=== PATIENT | male | born 1975 | race African-American/Black ===

== ENCOUNTER 2016-12-19 16:27 | Emergency (ER) | payer OTHER ==
[2016-12-19 16:32] VITALS: TEMP 97.8; BMI 49.3
--- NOTE | 2016-12-19 17:17 | PDOC ---
[id number] 98 12/19/16 16:29 12/19/16 16:29 12/19/16 16:29 12/19/16 16:29 12/19/16 16:29 Medical Decision Making - Medical Decision Making 12/19/16 17:16 Case reviewed with CARAMEL CANDY MAKER HELPER. Plan as per CARAMEL CANDY MAKER HELPER *DC/Admit/Observation/Transfer Diagnosis at time of Disposition: Asymptomatic hypertension - Discharge Dispostion Disposition: HOME - Referrals Referrals: Dariel Breen MD [Primary Care Provider] - - Patient Instructions Printed Discharge Instructions: DI for High Blood Pressure Additional Instructions: Continue your medication and be reevaluated with your doctor on Thursday as scheduled Be reevaluated over the weekend if not feeling right
[2016-12-19] MEDS ORDERED: amLODIPine BESYLATE 10 MG TABLET (FP) PO ONE (17:19)
[2016-12-19] MEDS ORDERED: LOSARTAN POTASSIUM 50 MG TABLET (FP) PO ONE (17:19)
--- NOTE | 2016-12-19 17:19 | PDOC ---
History of Present Illness - General Chief Complaint: Blood Pressure Problem Stated Complaint: BP PROBLEM Time Seen by Provider: 12/19/16 17:10 History Source: Patient Exam Limitations: No Limitations - History of Present Illness Initial Comments: 12/19/16 17:50 Chief complaint: Blood pressure check Shouldn't is 41-year-old obese male who had sleeve surgery on 12/05. Patient states he saw his doctor last week and his blood pressure was good so his doctor took him off of his blood pressure medicine. Patient feels fine, but is here with his and wanted to get his blood pressure checked and it was found to be elevated. Patient has no complaints bp 148/106 GENERAL/CONSTITUTIONAL: No fever, weakness. dizziness HEAD, EYES, EARS, NOSE AND THROAT: No change in vision. No ear pain or discharge. No sore throat. CARDIOVASCULAR: No chest pain RESPIRATORY: No shortness of breath or cough GASTROINTESTINAL: No pain, nausea, vomiting, diarrhea or constipation GENITOURINARY: No dysuria MUSCULOSKELETAL: No neck or back pain SKIN: No rash NEUROLOGIC: No headache, vertigo, loss of consciousness, or loss of sensation. GENERAL: The patient is awake, alert, and fully oriented, in no acute distress. HEAD: Normal with no signs of trauma. EYES: Pupils equal, round and reactive to light, sclera anicteric, conjunctiva clear. ENT: pharynx: no erythema, no exudate, uvula midline NECK: supple CHEST: clear, nontender, rr ABD: soft, nontender EXTREMITIES: Normal range of motion, no edema. NEUROLOGICAL: Normal speech, normal gait. SKIN: Warm, Dry 12/19/16 17:53 Past History - Past Medical History Allergies/Adverse Reactions: Allergies Allergy/AdvReac Type Severity Reaction Status Date / Time Penicillins Allergy Intermediate Swelling Verified 12/19/16 17:22 Home Medications: Ambulatory Orders Amlodipine Besylate [Norvasc -] 10 mg PO HS 08/31/14 Losartan Potassium 50 mg PO HS 08/31/14 Anemia: No Asthma: No Cancer: No Cardiac Disorders: No CVA: No COPD: No CHF: No Dementia: No Diabetes: No GI Disorders: Yes (diverticulitis/diverticulosis) Disorders: No HTN: Yes Hypercholesterolemia: Yes Liver Disease: No Seizures: No Thyroid Disease: No - Surgical History Abdominal Surgery: No Appendectomy: No Cardiac Surgery: No Cholecystectomy: No GI Surgery: Yes (sleeve 12/2016) Lung Surgery: No Neurologic Surgery: No Orthopedic Surgery: No - Immunization History Immunization Up to Date: Yes - Psycho/Social/Smoking Cessation Hx Anxiety: No Suicidal Ideation: No Smoking Status: No Smoking History: Never smoked Have you smoked in the past 12 months: No Number of Cigarettes Smoked Daily: 0 Information on smoking cessation initiated: No Hx Alcohol Use: No Drug/Substance Use Hx: No Substance Use Type: None *Physical Exam - Vital Signs Last Vital Signs Temp Pulse Resp BP Pulse Ox 97.8 F 77 20 148/106 98 12/19/16 16:29 12/19/16 16:29 12/19/16 16:29 12/19/16 16:29 12/19/16 16:29 Medical Decision Making - Medical Decision Making 12/19/16 17:54 Patient with asymptomatic hypertension, patient takes Norvasc 10 ML losartan 50 mg has not taken since Thursday. Patient will be given a dose of both, he has an appointment with his regular doctor on Thursday and he will continue to take his medication every day and be reevaluated by his doctor on Thursday *DC/Admit/Observation/Transfer Diagnosis at time of Disposition: Asymptomatic hypertension - Discharge Dispostion Disposition: HOME Admit: No - Referrals Referrals: Dariel Breen MD [Primary Care Provider] - - Patient Instructions Printed Discharge Instructions: DI for High Blood Pressure Additional Instructions: Continue your medication and be reevaluated with your doctor on Thursday as scheduled Be reevaluated over the weekend if not feeling right
[2016-12-19] MEDS ORDERED: LOSARTAN POTASSIUM 25 MG TABLET ONE (17:34)
[2016-12-19] MEDS ORDERED: amLODIPine BESYLATE 5 MG TABLET (FP) ONE (17:34)
[2016-12-19 17:46] VITALS: BP 148/99; PULSE 80
== END 2016-12-19 17:44 | disposition home or self-care (01) ==
LOC: JER 16:27
DX: Z01.31 Encounter for examination of blood pressure with abnormal findings (principal); Z98.84 Bariatric surgery status; I10 Essential (primary) hypertension; E78.00 Pure hypercholesterolemia, unspecified
CPT/HCPCS: 99282-25

== ENCOUNTER 2018-04-02 16:51 | Emergency (ER) | payer SELFPAY ==
--- NOTE | 2018-04-02 17:01 | PDOC ---
Rapid Medical Evaluation Time Seen by Provider: 04/02/18 17:00 Medical Evaluation: Allergies Allergy/AdvReac Type Severity Reaction Status Date / Time Penicillins Allergy Intermediate Swelling Verified 12/19/16 17:22 I have performed a brief in-person evaluation of this patient. The patient presents with a chief complaint of: right low back pain x 2 days. No radiation of pain. worse with movement Pertinent physical exam findings: No TTP of right lower lumbar region. No midline lumbar spine TTP. No CVA TTP b/l. Full ROM of lumbar spine without pain I have ordered the following: nothing The patient will proceed to the ED for further evaluation. Discharge Disposition - Diagnosis Low back pain - Referrals - Patient Instructions - Post Discharge Activity
[2018-04-02 17:04] VITALS: BP 147/78; PULSE 80; TEMP 98.4; BMI 32.8
[2018-04-02] MEDS ORDERED: IBUPROFEN 400 MG TABLET (FP) PO ONE ×2 (17:44→17:48)
--- NOTE | 2018-04-02 17:59 | PDOC ---
History of Present Illness - General Chief Complaint: Back Pain Stated Complaint: PAIN Time Seen by Provider: 04/02/18 17:00 History Source: Patient - History of Present Illness Occurred: reports: other Pain Location: reports: back Past History - Past Medical History Allergies/Adverse Reactions: Allergies Allergy/AdvReac Type Severity Reaction Status Date / Time Penicillins Allergy Intermediate Swelling Verified 04/02/18 17:00 Home Medications: Ambulatory Orders Amlodipine Besylate [Norvasc -] 10 mg PO HS 08/31/14 Anemia: No Asthma: No Cancer: No Cardiac Disorders: No CVA: No COPD: No CHF: No DVT: No Dementia: No Diabetes: No GI Disorders: Yes (diverticulitis/diverticulosis) Disorders: No HTN: Yes Hypercholesterolemia: Yes Liver Disease: No Seizures: No Thyroid Disease: No - Surgical History Abdominal Surgery: No Appendectomy: No Cardiac Surgery: No Cholecystectomy: No GI Surgery: Yes (sleeve 12/2016) Lung Surgery: No Neurologic Surgery: No Orthopedic Surgery: No - Immunization History Immunization Up to Date: Yes - Suicide/Smoking/Psychosocial Hx Smoking Status: No Smoking History: Never smoked Have you smoked in the past 12 months: No Number of Cigarettes Smoked Daily: 0 Information on smoking cessation initiated: No Hx Alcohol Use: No Drug/Substance Use Hx: No Substance Use Type: None Review of Systems - Review of Systems Constitutional: No: Chills, Fever ABD/GI: No: Nausea, Vomiting, Abdominal cramping : No: Burning, Dysuria, Discharge, Hematuria *Physical Exam - Vital Signs Last Vital Signs Temp Pulse Resp BP Pulse Ox 98.4 F 80 18 147/78 100 04/02/18 17:01 04/02/18 17:01 04/02/18 17:01 04/02/18 17:01 04/02/18 17:01 - Physical Exam General Appearance: Yes: Appropriately Dressed. No: Apparent Distress HEENT: positive: Normal Voice Neck: positive: Supple Respiratory/Chest: positive: Lungs Clear, Normal Breath Sounds. negative: Respiratory Distress Cardiovascular: positive: Regular Rate, S1, S2 Gastrointestinal/Abdominal: positive: Soft. negative: Tender Musculoskeletal: negative: CVA Tenderness Extremity: positive: Normal Inspection Integumentary: positive: Dry, Warm Neurologic: positive: Fully Oriented, Alert, Normal Mood/Affect ED Treatment Course - Medications Given in the ED: ED Medications Discontinued Medications Generic Name Dose Route Start Last Admin Trade Name Giuliano PRN Reason Stop Dose Admin Ibuprofen 800 mg 04/02/18 17:44 04/02/18 17:52 Motrin - PO 04/02/18 17:45 800 mg ONCE ONE Administration Medical Decision Making - Medical Decision Making 04/02/18 17:56 42-year-old male status post gastric sleeve 12/19, HTN, ?borderline DM, possible diverticulitis, here with gradual onset right mid back pain 2 days. Described pain as achy with intensity of 6 out of 10 with no exacerbating or alleviating factors. Has not taken anything for pain. Denies any trauma, but states he did lift some heavy boxes at some point prior to onset of pain. Patient denies any nausea, vomiting, dysuria, hematuria, abdominal pain or changes in bowel movements. No sob or CP. See exam R mid back pain Possibly MSK given heavy lifting per hx No sxs or n/v to suspect uti or renal colic at this time No suspicion for aortic pathology Exam unremarkable -UA -pain control 04/02/18 18:23 Ua neg for bld or infxn. Pt improved w/ meds. Will dc w/ PMD f/u as needed 04/02/18 18:25 *DC/Admit/Observation/Transfer Diagnosis at time of Disposition: Low back pain Qualifiers: Chronicity: acute Back pain laterality: right Sciatica presence: without sciatica Qualified Code(s): M54.5 - Low back pain - Discharge Dispostion Disposition: HOME Condition at time of disposition: Improved - Referrals Referrals: Dariel Breen MD [Primary Care Provider] - - Patient Instructions Printed Discharge Instructions: DI for Thoracic Back Pain Additional Instructions: Your back pain is possibly muscular. Muscular back pain can take several days to a week or so to improve. Take Motrin or Tylenol as needed for pain and follow-up with your PMD for further evaluation if pain persists - Post Discharge Activity
[2018-04-02 18:14] LABS: URINE APPEARANCE CLEAR; URINE BILIRUBIN NEGATIVE (<2.0 mg/dL); URINE COLOR YELLOW; URINE GLUCOSE (UA) NEGATIVE (NEGATIVE); URINE KETONE NEGATIVE (NEGATIVE); URINE LEUK ESTERASE NEGATIVE (NEGATIVE); URINE NITRITE NEGATIVE (NEGATIVE); URINE PROTEIN NEGATIVE (NEGATIVE); URINE UROBILINOGEN 4.0 E.U/dl mg/dL (0.2-1.0)
== END 2018-04-02 18:30 | disposition home or self-care (01) ==
LOC: JERFT 16:51
DX: M54.5 Low back pain (principal); I10 Essential (primary) hypertension; E78.00 Pure hypercholesterolemia, unspecified; Z87.19 Personal history of other diseases of the digestive system
CPT/HCPCS: 81003; 99281-25

== ENCOUNTER 2018-09-27 11:04 | Inpatient (IN) | payer OTHER ==
[2018-09-27 11:27] VITALS: BMI 33.6
--- NOTE | 2018-09-27 12:09 | PDOC ---
Attending Attestation - HPI HPI: 09/27/18 13:01 The patient is a 43 year old male, with a significant past medical history of hypertension and gastric bypass, who presents to the emergency department with diffuse, vague abdominal pain since last night. The patient denies chest pain, shortness of breath, headache and dizziness. The patient denies fever, chills, nausea, vomit, diarrhea and constipation. The patient denies dysuria, frequency, urgency and hematuria. Allergies: Penicillins PCP - Dr. Dariel Breen - Physicial Exam PE: 09/27/18 13:01 Vitals: Triage vital signs reviewed General Appearance: No acute distress, well nourished, well developed Head: Atraumatic Eyes: Pupils equal reactive round, extraocular movement intact Neck: Supple; No nuchal rigidity Chest Wall: Nontender Cardiac: Regular rate and rhythm, no murmurs, no rubs, no gallops Lungs: Clear to auscultation bilateral, good air movement bilaterally Abdomen: Soft, nondistended, normal bowel sounds, nontender to palpation Extremities: Full range of motion to all extremities, no cyanosis, clubbing, or edema Skin: Warm and dry, no rashes or lesions, no rash, no petechiae Neuro: AOX3; Cranial Nerves 2-12 grossly intact, Strength intact to all extremities, Sensation intact to all extremities, gait normal Psych: Normal mood, normal affect - Medical Decision Making 09/27/18 13:01 Documentation prepared by Soledad Arora, acting as director of medical education for Jessee Swift MD <Soledad Arora - Last Filed: 09/27/18 13:01> - Resident Resident Name: Vee Espino - ED Attending Attestation I have performed the following: I have examined & evaluated the patient, The case was reviewed & discussed with the resident, I agree w/resident's findings & plan, Exceptions are as noted - Medical Decision Making 43 years old history of gastric bypass presents with sudden severe onset abdominal discomfort differential diagnosis includes obstruction gallstones viral illness Pain medication ordered patient ordered for abdominal ultrasound as well as CT abdomen pelvis with by mouth and IV contrast given previous abdominal surgical history Dr. Blackwell to follow up results and reassess. <Jessee Swift - Last Filed: 09/27/18 16:27>
[2018-09-27] MEDS ORDERED: SODIUM CHLORIDE 0.9% 1000 ML INFUS.BAG IV ONE (12:42)
[2018-09-27] MEDS ORDERED: ACETAMINOPHEN 1000 MG/100 ML VIAL (NON FORMULARY) IVPB ONE (12:42)
--- NOTE | 2018-09-27 12:44 | PDOC ---
History of Present Illness - General Chief Complaint: Nausea/Vomiting Stated Complaint: Pain, Acute Time Seen by Provider: 09/27/18 12:07 - History of Present Illness Initial Comments: 09/27/18 12:59 Patient is a 43 year old male with PMHx of HTN and gastric sleeve surgery (2015) , presented with sudden onset, severe, 10/10, diffuse, nonradiating, vague abdominal pain that started yesterday. Patient reported eating dinner, and a few hours after experienced the abdominal pain. He had one episode of NBNB vomiting. Denies headache, dizziness, fevers, chills, chest pain, SOB, palpitations, diarrhea, constipation, urinary symptoms. Past History - Past Medical History Allergies/Adverse Reactions: Allergies Allergy/AdvReac Type Severity Reaction Status Date / Time Penicillins Allergy Intermediate Swelling Verified 09/27/18 11:20 Home Medications: Ambulatory Orders Amlodipine Besylate [Norvasc -] 10 mg PO HS 08/31/14 Anemia: No Asthma: No Cancer: No Cardiac Disorders: No CVA: No COPD: No CHF: No DVT: No Dementia: No Diabetes: No GI Disorders: Yes (diverticulitis/diverticulosis) Disorders: No HTN: Yes Hypercholesterolemia: Yes Liver Disease: No Seizures: No Thyroid Disease: No - Surgical History Abdominal Surgery: No Appendectomy: No Cardiac Surgery: No Cholecystectomy: No GI Surgery: Yes (sleeve 12/2016) Lung Surgery: No Neurologic Surgery: No Orthopedic Surgery: No - Immunization History Immunization Up to Date: Yes - Suicide/Smoking/Psychosocial Hx Smoking Status: No Smoking History: Never smoked Have you smoked in the past 12 months: No Number of Cigarettes Smoked Daily: 0 Information on smoking cessation initiated: No Hx Alcohol Use: No Drug/Substance Use Hx: No Substance Use Type: None *Physical Exam - Vital Signs Last Vital Signs Temp Pulse Resp BP Pulse Ox 98.5 F 86 16 170/105 H 99 09/27/18 11:21 09/27/18 11:21 09/27/18 11:21 09/27/18 11:21 09/27/18 11:21 ED Treatment Course - LABORATORY CBC & Chemistry Diagram: 09/27/18 12:47 09/27/18 12:47 Medical Decision Making - Medical Decision Making 09/27/18 12:40 Patient is a 43 year old male with PMHx of HTN and gastric sleeve surgery (2016) , presented with sudden onset, severe, 08/11, diffuse, nonradiating, vague abdominal pain that started yesterday. General: awake, alert, oriented, not in acute distress Head: no signs of head trauma HEENT: PERRLA, EOMI, sclerae anicteric, no nasal discharge, dry mucous membranes Neck: supple, trachea midline, without LAD Lungs: clear to auscultation bilaterally Heart: regular rate and rhythm, normal S1/S2, no m,r,g Abdomen: soft, mild tenderness on all quadrants, nondistended, +BS, no guarding , no masses Ext: +2 pulses, no cyanosis, clubbing, edema DDx includes but not limited to: bowel obstruction, cholelithiasis, choledocholithiasis, pancreatitis, ACS, CBC, CMP Trop, Lipase EKG Abdominal CT with contrast IV tylenol 1000mg IV NS 09/27/18 14:25 AST/ALT - 245/295 Lipase - 35591 T bili - 4.3 abdominal US ordered 09/27/18 18:36 Abdominal ultrasound - gallstone pancreatitis Abdominal CT- gallstone pancreatitis Spoke with Dr. Mccall, accepted patient for admission Surgery (Dr. Matthews) consulted. GI (Dr. Hickman) consulted. ERCP not available at this time. 09/27/18 19:[address] Howie Reno from [facility], who did patient's gastric surgery. To transfer patient as he may need ERCP. 09/27/18 20:[address] Howie Reno, who will be accepting patient for transfer to [facility] Main Patient for transfer. 09/27/18 21:32 Nurse report done by ALETHEA Guo. Patient will be in bed number 8E/8B, under Dr. Howie Reno's service. [facility] called for transport to [facility] *DC/Admit/Observation/Transfer Diagnosis at time of Disposition: Gallstone pancreatitis - Discharge Dispostion Condition at time of disposition: Stable Decision to Admit order: Yes - Referrals - Patient Instructions - Post Discharge Activity
[2018-09-27] MEDS ORDERED: ACETAMINOPHEN INJECTION 100 ML IVPB ONE (12:50)
[2018-09-27 12:58] LABS: BASO % 0.1 % (0-2.0); EOS % 0.5 % (0-4.5); HEMATOCRIT 45.4 % (35.4-49); HEMOGLOBIN 15.9 GM/dL (11.7-16.9); LYMPH % 8.1 % (8-40); MCH 30.7 pg (25.7-33.7); MCHC 35.1 g/dl (32.0-35.9); MEAN CELL VOLUME 87.7 fl (80-96); MEAN PLT VOLUME 10.5 fl (7.5-11.1); MONO % 6.2 % (3.8-10.2); NEUT % 85.1 % (42.8-82.8); PLATELET COUNT 168 K/MM3 (134-434); RBC 5.18 M/mm3 (4.00-5.60); RDW 14.3 % (11.9-15.9); WHITE BLOOD COUNT 7.1 K/mm3 (4.0-10.0)
--- NOTE | 2018-09-27 13:30 | EKG ---
Test Reason : Blood Pressure : / mmHG Vent. Rate : 083 BPM Atrial Rate : 085 BPM P-R Int : 156 ms QRS Dur : 092 ms QT Int : 380 ms P-R-T Axes : 058 -01 039 degrees QTc Int : 446 ms NORMAL SINUS RHYTHM WITH SINUS ARRHYTHMIA NO PREVIOUS ECGS AVAILABLE Confirmed by FEDERICO BUTT MD ([id number]) on 09/27/2018 1:29:46 PM Referred By: Confirmed By:FEDERICO BUTT MD
[2018-09-27 14:01] LABS: ALBUMIN 3.8 g/dl (3.4-5.0); ALK PHOS 74 U/L (45-117); ANION GAP 12 MMOL/L (8-16); BILIRUBIN,TOTAL 4.3 mg/dL (0.2-1); BLOOD UREA NITROGEN 15 mg/dL (7-18); CHLORIDE 105 mmol/L (98-107); CO2 25 mmol/L (21-32); CREATININE 0.9 mg/dL (0.55-1.3); GLUCOSE,RANDOM 138 mg/dL (74-106); POTASSIUM 3.9 mmol/L (3.5-5.1); SGOT/AST 245 U/L (15-37); SGPT/ALT 295 U/L (13-61); SODIUM 142 mmol/L (136-145)
[2018-09-27 14:15] LABS: LIPASE 18917 U/L (73-393); MAGNESIUM 1.9 mg/dL (1.8-2.4)
[2018-09-27] MEDS ORDERED: morphine SULFATE 4 MG/ML VIAL IVPUSH ONE (17:04)
[2018-09-27 17:10] LABS: URINE APPEARANCE CLEAR; URINE COLOR AMBER; URINE GLUCOSE (UA) NEGATIVE (NEGATIVE); URINE KETONE 1+ (NEGATIVE); URINE LEUK ESTERASE NEGATIVE (NEGATIVE); URINE NITRITE NEGATIVE (NEGATIVE); URINE PROTEIN NEGATIVE (NEGATIVE); URINE UROBILINOGEN 4.0 E.U/dl mg/dL (0.2-1.0)
[2018-09-27] MEDS ORDERED: SODIUM CHLORIDE 1,000 ML IV SCH ×2 (17:30→17:34)
[2018-09-27] MEDS ORDERED: D5-1/2NS+10 MEQ KCL - 10 MEQ/1,000 ML INFUS.BAG IV SCH (17:30)
[2018-09-27] MEDS ORDERED: PANTOPRAZOLE SODIUM 40 MG VIAL IVPUSH SCH (17:30)
[2018-09-27] MEDS ORDERED: ONDANSETRON 4 MG/2 ML VIAL IVPUSH PRN (17:30)
[2018-09-27] MEDS ORDERED: morphine SULFATE 4 MG/ML VIAL ONE (17:43)
--- NOTE | 2018-09-27 17:44 | HP ---
Admitting History and Physical - Primary Care Physician PCP: Dariel Breen - Admission Chief Complaint: Abd Pain with nausea and vomiting History of Present Illness: 43 yrs old man with H/O HTN, morbid obesity s/p Gsatric sleeve surgery at [place] 2 yrs ago present with sever epigastric pain since last night 8, with nausea, feels my abdomen is distended also an episode of vomiting no hemetmesis or melena last BM was yesterday not passing flatus since last night, no c/o fever, chills, dysuria, in the ED present with high BP lab shows deranged Lfts and Lipase CT abd and ultrasound performed that shows acute pancreatitis with peripancraetic fluid, cholelthiasis with swollen gall bladder surgery and GI consulted. Patient has good ET denies any orthopnea or PND, History Source: Patient - Past Medical History Cardiovascular: Yes: HTN - Smoking History Smoking history: Never smoked Have you smoked in the past 12 months: No Aproximately how many cigarettes per day: 0 - Alcohol/Substance Use Hx Alcohol Use: No Home Medications - Allergies Allergies/Adverse Reactions: Allergies Allergy/AdvReac Type Severity Reaction Status Date / Time Penicillins Allergy Intermediate Swelling Verified 09/27/18 11:20 - Home Medications Home Medications: Ambulatory Orders Amlodipine Besylate [Norvasc -] 10 mg PO HS 08/31/14 Family Disease History - Family Disease History Family History: Unremarkable Family Disease History: Heart Disease: Father (HTN), Mother (HTN) Review of Systems - Review of Systems Constitutional: denies: Chills, Diaphoresis, Fever, Lethargy Eyes: denies: Blind Spots, Blurred Vision HENT: denies: Difficult Swallowing, Ear Discharge, Ear Pain, Epistaxis Neck: denies: Decreased ROM, Lumps, Pain on Movement Cardiovascular: denies: Chest Pain, Edema, Palpitations, Shortness of Breath Respiratory: denies: Cough, Exercise Intolerance, Hemoptysis Gastrointestinal: reports: Abdominal Pain, Nausea, Vomiting Genitourinary: denies: Burning, Discharge Musculoskeletal: denies: Back Pain Neurological: denies: Change in LOC, Change in Speech, Confusion Endocrine: denies: Excessive Sweating, Flushing Hematology/Lymphatic: denies: Easily Bruised, Excessive Bleeding Physical Examination Vital Signs: Vital Signs Temperature 98.5 F 09/27/18 11:21 Pulse Rate 86 09/27/18 11:21 Respiratory Rate 16 09/27/18 11:21 Blood Pressure 170/105 H 09/27/18 11:21 O2 Sat by Pulse Oximetry (%) 99 09/27/18 11:21 Constitutional: Yes: Well Nourished, Moderate Distress Neck: Yes: Supple, Trachea Midline. No: Decreased ROM, Lymphadenopathy Cardiovascular: Yes: Regular Rate and Rhythm, S1. No: JVD, Gallop, Murmur Respiratory: Yes: CTA Bilaterally Gastrointestinal: Yes: Normal Bowel Sounds, Tenderness, Epigastrium Extremities: No: Calf Tenderness Edema: No Peripheral Pulses: Left Doralis Pedis: 1+, Right Dorsalis Pedis: 1+ Neurological: Yes: Alert, Oriented ...Motor Strength: WNL, LUE, LLE, RUE, RLE Labs: CBC,CMP WBC 7.1 K/mm3 (4.0-10.0) 09/27/18 12:47 RBC 5.18 M/mm3 (4.00-5.60) 09/27/18 12:47 Hgb 15.9 GM/dL (11.7-16.9) 09/27/18 12:47 Hct 45.4 % (35.4-49) 09/27/18 12:47 MCV 87.7 fl (80-96) 09/27/18 12:47 MCH 30.7 pg (25.7-33.7) 09/27/18 12:47 MCHC 35.1 g/dl (32.0-35.9) 09/27/18 12:47 RDW 14.3 % (11.9-15.9) 09/27/18 12:47 Plt Count 168 K/MM3 (134-434) 09/27/18 12:47 MPV 10.5 fl (7.5-11.1) 09/27/18 12:47 Absolute Neuts (auto) 6.0 K/mm3 (1.5-8.0) 09/27/18 12:47 Neutrophils % 85.1 % (42.8-82.8) H D 09/27/18 12:47 Lymphocytes % 8.1 % (8-40) D 09/27/18 12:47 Monocytes % 6.2 % (3.8-10.2) 09/27/18 12:47 Eosinophils % 0.5 % (0-4.5) 09/27/18 12:47 Basophils % 0.1 % (0-2.0) 09/27/18 12:47 Nucleated RBC % 0 % (0-0) 09/27/18 12:47 Sodium 142 mmol/L (136-145) 09/27/18 12:47 Potassium 3.9 mmol/L (3.5-5.1) 09/27/18 12:47 Chloride 105 mmol/L (98-107) 09/27/18 12:47 Carbon Dioxide 25 mmol/L (21-32) 09/27/18 12:47 Anion Gap 12 MMOL/L (8-16) 09/27/18 12:47 BUN 15 mg/dL (7-18) 09/27/18 12:47 Creatinine 0.9 mg/dL (0.55-1.3) 09/27/18 12:47 Creat Clearance w eGFR > 60 (>60) 09/27/18 12:47 Random Glucose 138 mg/dL (74-106) H 09/27/18 12:47 Calcium 9.0 mg/dL (8.5-10.1) 09/27/18 12:47 Magnesium 1.9 mg/dL (1.8-2.4) 09/27/18 12:47 Total Bilirubin 4.3 mg/dL (0.2-1) H 09/27/18 12:47 AST 245 U/L (15-37) H 09/27/18 12:47 ALT 295 U/L (13-61) H 09/27/18 12:47 Alkaline Phosphatase 74 U/L (45-117) 09/27/18 12:47 Creatine Kinase 143 IU/L (26-308) 09/27/18 12:47 Troponin I < 0.02 ng/ml (0.00-0.05) 09/27/18 12:47 Total Protein 7.0 g/dl (6.4-8.2) 09/27/18 12:47 Albumin 3.8 g/dl (3.4-5.0) 09/27/18 12:47 Lipase 15933 U/L (73-393) H 09/27/18 12:47 Imaging - Results Cat Scan: Report Reviewed (Abdomen and Pelvis: Acute pancretatitsi with peripancreatic Fluid) Ultrasound: Report Reviewed (Distended Gall bladder with stones) EKG: Report Reviewed (nsr no acute ST t changes) Problem List - Problems (1) Gallstone pancreatitis Assessment/Plan: Typical presentation, with elevated TB , Alk Phosphate and SGOT/SGPT, Lipase > 18 K with moderte amount of horacio-pancreatic fluid, Gall bladder distention with multiple Gall stones CBD 0.5 cm, no CT evidence of pancreatic necrosis, IV Hydration Normal saline 150 cc/HR, NPO, Pain control, IV PPI, MRCP< surgery consult, serial labs and Lapse will F/U CRP level, rest management as per surgery recommendation.Gi and surgery input appreciated considering elevated TB possibality of obstructed stone at present ERCP is not available , GI recomonded transfer to a Ctr with ERCP facility, so discussed with surgery consult and ED attending, as patient previously oprated at [facility] is contactcting [place] to transfer the patient. Code(s): K85.10 - BILIARY ACUTE PANCREATITIS WITHOUT NECROSIS OR INFECTION (2) Abdominal pain Assessment/Plan: Due to acute pancreatitis Code(s): R10.9 - UNSPECIFIED ABDOMINAL PAIN (3) Nausea & vomiting Assessment/Plan: dUe to acute pancreatitis NPO IV PPI Zofran and Code(s): R11.2 - NAUSEA WITH VOMITING, UNSPECIFIED Qualifiers: Vomiting type: unspecified Vomiting Intractability: non-intractable Qualified Code(s): R11.2 - Nausea with vomiting, unspecified (4) Asymptomatic hypertension Assessment/Plan: Took am meds BP is well controlled after Pain medications Code(s): I10 - ESSENTIAL (PRIMARY) HYPERTENSION (5) Morbid obesity Assessment/Plan: S/P Gastric sleeve surgery Code(s): E66.01 - MORBID (SEVERE) OBESITY DUE TO EXCESS CALORIES
[2018-09-27] MEDS ORDERED: PANTOPRAZOLE SODIUM 40 MG VIAL ONE (17:45)
[2018-09-27] MEDS: SODIUM CHLORIDE 1,000 ML IV SCH ×2 (18:06→18:31)
--- NOTE | 2018-09-27 18:24 | CONSULT ---
Consult Consult Specialty:: General Surgery Referred by:: Clark Mccall Reason for Consultation:: gallstone pancreatitis - History of Present Illness Chief Complaint: abdominal pain History of Present Illness: 43yo obese M with HTN, diverticulitis x 2 episodes prior to bariatric surgery, s /p EGD/colonoscopy, h/o morbid obesity s/p lap gastric sleeve 12/19 with 100# weight loss, has not seen his bariatric surgeon recently, had Thanksgiving leftovers yesterday and started having abdominal pain, which did not respond to motrin. He describes pain "everywhere," and has had pain with breathing because of it. He had an episode of vomiting (food) and diarrhea yesterday as well. This morning, he had coffee with equal and half&half, and the pain got even worse, prompting him to come to hospital. He denies fever or chills. In ER, he has normal wbc, is dehydrated by labs, has elevated AST/ALT and bili 4.6, with lipase 18K, normal alk phos. Urine with ketones and high specific gravity 1.055; he describes it as very dark. US showed gallstones with somewhat distended galllbladder, possibly mild wall thickening, cbd 5mm, possibly enlarged pancreas. CT showed pancreatitis without revealing the gallstones clearly, with peripancreatic fluid into lesser sac, pararenal spaces, lateral to liver, and also in pelvis, as well as a small duodenal diverticulum. His pain is a bit better after morphine, and he has been started on fluids and Levofloxacin/Flagyl. Plan is to admit to medicine; GI and surgery are asked to assess. - History Source History Provided By: Patient Limitations to Obtaining History: No Limitations - Past Medical History Cardio/Vascular: Yes: HTN Gastrointestinal: Yes: Diverticulitis, Diverticulosis, Other (morbid obesity) - Past Surgical History Past Surgical History: Yes: Bariatric Surgery (laparoscopic gastric sleeve 12/19 Dr. Richter, [facility]), Colonoscopy, Upper Endoscopy - Alcohol/Substance Use Hx Alcohol Use: No History of Substance Use: reports: None - Smoking History Smoking history: Never smoked Have you smoked in the past 12 months: No Aproximately how many cigarettes per day: 0 - Social History Usual Living Arrangement: With Spouse (and 4 children, youngest is 6) ADL: Independent Home Medications - Allergies Allergies/Adverse Reactions: Allergies Allergy/AdvReac Type Severity Reaction Status Date / Time Penicillins Allergy Intermediate Swelling Verified 09/27/18 11:20 - Home Medications Home Medications: Ambulatory Orders Amlodipine Besylate [Norvasc -] 10 mg PO HS 08/31/14 Family Disease History - Family Disease History Family Disease History: Heart Disease: Father (HTN, of stomach CA last year in late 60s), Mother (HTN, lung CA diagnosed few years ago, she is alive in late 60s), CA: Father, Mother Review of Systems - Review of Systems Constitutional: reports: Loss of Appetite. denies: Chills, Fever Eyes: denies: Blurred Vision, Recent Change in Vision HENT: reports: Throat Pain (uncomfortable now). denies: Difficult Swallowing, Nasal Congestion Neck: denies: Swollen Glands, Tenderness Cardiovascular: denies: Chest Pain, Palpitations Respiratory: denies: Cough, SOB Gastrointestinal: reports: Abdominal Pain (with hpi), Diarrhea (with hpi), Nausea, Vomiting (with hpi). denies: Constipation, Rectal Bleeding, Vomiting Blood Genitourinary: denies: Burning, Dysuria Musculoskeletal: reports: Back Pain (occasionally). denies: Joint Pain, Muscle Pain Integumentary: denies: Change in Color, Rash Neurological: denies: Dizziness, Headache Psychiatric: denies: Anxiety, Depression Physical Exam Vital Signs: Vital Signs Temperature 98.4 F 09/27/18 18:08 Pulse Rate 81 09/27/18 18:08 Respiratory Rate 16 09/27/18 11:21 Blood Pressure 126/63 09/27/18 18:08 O2 Sat by Pulse Oximetry (%) 96 09/27/18 18:08 Constitutional: Yes: Calm, Mild Distress (secondary to pain), Obese Eyes: Yes: Conjunctiva Clear, EOM Intact. No: Sclera Icterus HENT: Yes: Atraumatic, Normocephalic Neck: Yes: Supple, Trachea Midline Cardiovascular: Yes: Regular Rate and Rhythm. No: Murmur Respiratory: Yes: Regular, CTA Bilaterally (distant) Gastrointestinal: Yes: Normal Bowel Sounds, Soft, Abdomen, Obese, Tenderness ( RUQ less than epigastric, some in LUQ but much less tender), Tenderness, Epigastrium. No: Tenderness, Rebound ...Rectal Exam: Yes: Deferred Renal/: No: CVA Tenderness - Left, CVA Tenderness - Right Musculoskeletal: No: Joint Stiffness, Joint Swelling Extremities: No: Cool, Cyanosis Edema: No Peripheral Pulses WNL: Yes Integumentary: Yes: Tattoos. No: Jaundice, Rash Neurological: Yes: Alert, Oriented Psychiatric: Yes: Alert, Oriented Labs: CBC, BMP 09/27/18 12:47 09/27/18 12:47 CMP Sodium 142 mmol/L (136-145) 09/27/18 12:47 Potassium 3.9 mmol/L (3.5-5.1) 09/27/18 12:47 Chloride 105 mmol/L (98-107) 09/27/18 12:47 Carbon Dioxide 25 mmol/L (21-32) 09/27/18 12:47 Anion Gap 12 MMOL/L (8-16) 09/27/18 12:47 BUN 15 mg/dL (7-18) 09/27/18 12:47 Creatinine 0.9 mg/dL (0.55-1.3) 09/27/18 12:47 Creat Clearance w eGFR > 60 (>60) 09/27/18 12:47 Random Glucose 138 mg/dL (74-106) H 09/27/18 12:47 Calcium 9.0 mg/dL (8.5-10.1) 09/27/18 12:47 Magnesium 1.9 mg/dL (1.8-2.4) 09/27/18 12:47 Total Bilirubin 4.3 mg/dL (0.2-1) H 09/27/18 12:47 AST 245 U/L (15-37) H 09/27/18 12:47 ALT 295 U/L (13-61) H 09/27/18 12:47 Alkaline Phosphatase 74 U/L (45-117) 09/27/18 12:47 Creatine Kinase 143 IU/L (26-308) 09/27/18 12:47 Troponin I < 0.02 ng/ml (0.00-0.05) 09/27/18 12:47 Total Protein 7.0 g/dl (6.4-8.2) 09/27/18 12:47 Albumin 3.8 g/dl (3.4-5.0) 09/27/18 12:47 Lipase 35534 U/L (73-393) H 09/27/18 12:47 Urine Test Results Urine Color Elda 09/27/18 17:00 Urine Appearance Clear 09/27/18 17:00 Urine pH 5.0 (5.0-8.0) 09/27/18 17:00 Ur Specific Howard 1.055 (1.010-1.035) H 09/27/18 17:00 Urine Protein Negative (NEGATIVE) 09/27/18 17:00 Urine Glucose (UA) Negative (NEGATIVE) 09/27/18 17:00 Urine Ketones 1+ (NEGATIVE) H 09/27/18 17:00 Urine Blood Negative (NEGATIVE) 09/27/18 17:00 Urine Nitrite Negative (NEGATIVE) 09/27/18 17:00 Urine Bilirubin 2.0 (<2.0 mg/dL) 09/27/18 17:00 Ur Leukocyte Esterase Negative (NEGATIVE) 09/27/18 17:00 Imaging - Results Cat Scan: Report Reviewed, Image Reviewed (image reviewed - peripancreatic inflammation, mostly in head/proximal half, with fluid in lesser sac, little lateral to liver, anterior pararenal spaces, pelvis; no apparent ductal dilation , gastric surgery noted) Ultrasound: Report Reviewed, Image Reviewed (images reviewed, multiple gallstones, wall 2.4mm, cbd 5mm) MRI: Pending Problem List - Problems (1) Biliary acute pancreatitis without necrosis or infection Assessment/Plan: NPO with generous IV fluid resuscitation replete lytes prn, trend labs check coags, T&S MRCP to evaluate for cbd stones GI consultation would need CBD clear and pancreatitis improved prior to considering cholecystectomy per GI -- we do not currently have ERCP capability at [facility] pt is likely to need ERCP, pending MRCP and/or elevation in LFTs/lipase in am ERCP may also be technically difficult given gastric sleeve and duodenal diverticulum on CT would agree with transfer to tertiary center, preferably where pt's bariatric surgeon works ([facility]) ER working on transfer Code(s): K85.10 - BILIARY ACUTE PANCREATITIS WITHOUT NECROSIS OR INFECTION (2) Calculus of gallbladder and bile duct without cholecystitis with obstruction Assessment/Plan: no clear cholecystitis, but antibiotics started (Levo/Flagyl) (~6/6:30pm) ok to continue for now pending possible ERCP Code(s): K80.71 - CALCULUS OF GB AND BILE DUCT W/O CHOLECYST W OBSTRUCTION (3) Dehydration Assessment/Plan: generous IV hydration with crystalloid for now Code(s): E86.0 - DEHYDRATION (4) Epigastric pain Assessment/Plan: pain meds prn - would advise IV Tylenol first-line, narcotics second pt would prefer to avoid narcotics if possible also Code(s): R10.13 - EPIGASTRIC PAIN (5) Nausea & vomiting Assessment/Plan: zofran prn Code(s): R11.2 - NAUSEA WITH VOMITING, UNSPECIFIED Qualifiers: Vomiting type: unspecified Vomiting Intractability: non-intractable Qualified Code(s): R11.2 - Nausea with vomiting, unspecified (6) Hypertension Assessment/Plan: probably ok for home amlodipine with sip of water daily, if needed to continue otherwise NPO Code(s): I10 - ESSENTIAL (PRIMARY) HYPERTENSION Qualifiers: Hypertension type: essential hypertension Qualified Code(s): I10 - Essential (primary) hypertension (7) Morbid obesity Assessment/Plan: s/p lap gastric sleeve 12/19 with good weight loss no recent bariatric followup potential transfer to [facility] Code(s): E66.01 - MORBID (SEVERE) OBESITY DUE TO EXCESS CALORIES
--- NOTE | 2018-09-27 19:28 | CON.GI ---
Consult Consult Specialty:: GI Referred by:: Dr. Vahe Mccall Reason for Consultation:: Acute pancreatitis - History of Present Illness Chief Complaint: Abdominal pain History of Present Illness: 43M admitted through [facility] ER for evaluation of abdominal pain. He states that 30 minutes after dinner last night he began experiencing constant, progressively more intense abdominal pain. He denied similar episodes in the past. He came to the ER this afternoon. Initial CBC was normal aside from increase in neutrophils, with elevated transaminases and bilirubin. He denies alcohol use. Pain persists. Abd US revealed Multiple gallstones, overdistended and thickened gallbladder wall. CT scan revealed changes c/w acute pancreatitis. He believes that he had EGD/Colonoscopy with Dr. Sanabria prior to a gastric sleeve surgery. - Past Medical History Cardio/Vascular: Yes: HTN Gastrointestinal: Yes: Diverticulitis, Diverticulosis, Other (morbid obesity) - Past Surgical History Past Surgical History: Yes: Bariatric Surgery (laparoscopic gastric sleeve 12/19 Dr. Richter, [facility]), Colonoscopy, Upper Endoscopy - Alcohol/Substance Use Hx Alcohol Use: No History of Substance Use: reports: None - Smoking History Smoking history: Never smoked Have you smoked in the past 12 months: No Aproximately how many cigarettes per day: 0 - Social History Usual Living Arrangement: Alone ADL: Independent Occupation: Unemployed Place of : [employer] [facility] History of Recent Travel: No Home Medications - Allergies Allergies/Adverse Reactions: Allergies Allergy/AdvReac Type Severity Reaction Status Date / Time Penicillins Allergy Intermediate Swelling Verified 09/27/18 11:20 - Home Medications Home Medications: Ambulatory Orders Amlodipine Besylate [Norvasc -] 10 mg PO HS 08/31/14 Family Disease History - Family Disease History Family Disease History: Heart Disease: Father (HTN, of stomach CA last year in late 60s), Mother (HTN, lung CA diagnosed few years ago, she is alive in late 60s), CA: Father, Mother, Other: Brother (2, healthy), Sister (2, healthy), Son (2, healthy), Daughter (2, healthy) Other Family History: No family history of colon cancer, pancreatitis Review of Systems - Review of Systems Constitutional: denies: Fever Cardiovascular: denies: Chest Pain Respiratory: denies: SOB Gastrointestinal: reports: Abdominal Pain. denies: Constipation, Diarrhea, Rectal Bleeding Physical Exam-GI Vital Signs: Vital Signs Temperature 98.4 F 09/27/18 18:08 Pulse Rate 81 09/27/18 18:08 Respiratory Rate 16 09/27/18 11:21 Blood Pressure 126/63 09/27/18 18:08 O2 Sat by Pulse Oximetry (%) 96 09/27/18 18:08 Constitutional: Yes: Calm Eyes: No: Sclera Icterus Cardiovascular: Yes: Regular Rate and Rhythm Respiratory: Yes: CTA Bilaterally Gastrointestinal Inspection: No: Distention ...Auscultate: Yes: Normoactive Bowel Sounds ...Palpate: Yes: Soft, Tenderness (TTP mid upper abdomen > RUQ). No: Guarding, Hepatomegaly, Splenomegaly, Tenderness, Rebound ...Percussion: No: Tympanitic Edema: No (No LE edema) Neurological: Yes: Alert Labs: CBC, BMP 09/27/18 12:47 09/27/18 12:47 Assessment/Plan Acute pancreatitis: Suspect secondary to gallstones as patient denies alcohol consumption. +/- concomitant cholecystitis. Given elevated bilirubin, I discussed case with biliary endoscopicst Dr. Fraire. He explained that given problem with the ERBE machine, he does not have the full capability to perform ERCP. It was unclear as to the timing of the repair. Because of this, he recommended transfer to a tertiary center with ERCP capability for backup if it appeared that therapeutics would be needed. I explained this to the patient and Dr. Mccall is aware. In the interim: Aggressive IV Hydration ie. lactated ringers @ 200-250cc/hr NPO On Abx to cover possible concomitant pancreatitis Await transfer
[2018-09-27] MEDS ORDERED: LACTATED RINGERS SOLUTION 1,000 ML/1,000 ML INFUS.BAG IV SCH (19:45)
[2018-09-27] MEDS ORDERED: SODIUM CHLORIDE 500 ML IV STA (19:46)
[2018-09-27 19:52] LABS: INR 1.17 (0.83-1.09); PROTHROMBIN TIME (PATIENT) 13.8 SEC (9.7-13.0)
[2018-09-27 21:47] VITALS: BP 130/73
[2018-09-27 22:01] LABS: CHOLESTEROL 124 mg/dL (50-200); HDL CHOLESTEROL 42 mg/dL (40-60); TRIGLYCERIDES 72 mg/dL (0-150)
[2018-09-28 03:34] VITALS: PULSE 90; TEMP 98.1
--- NOTE | 2018-09-28 21:06 | DS ---
Physical Examination Vital Signs: Temperature 98.1 F 09/27/18 21:50 Pulse Rate 90 09/27/18 21:50 Respiratory Rate 20 09/27/18 21:50 Blood Pressure 130/73 09/27/18 21:50 O2 Sat by Pulse Oximetry (%) 99 09/27/18 21:46 Physical Examination Vital Signs: Vital Signs Temperature 98.5 F 09/27/18 11:21 Pulse Rate 86 09/27/18 11:21 Respiratory Rate 16 09/27/18 11:21 Blood Pressure 170/105 H 09/27/18 11:21 O2 Sat by Pulse Oximetry (%) 99 09/27/18 11:21 Constitutional: Yes: Well Nourished, Moderate Distress Neck: Yes: Supple, Trachea Midline. No: Decreased ROM, Lymphadenopathy Cardiovascular: Yes: Regular Rate and Rhythm, S1. No: JVD, Gallop, Murmur Respiratory: Yes: CTA Bilaterally Gastrointestinal: Yes: Normal Bowel Sounds, Tenderness, Epigastrium Extremities: No: Calf Tenderness Edema: No Peripheral Pulses: Left Doralis Pedis: 1+, Right Dorsalis Pedis: 1+ Neurological: Yes: Alert, Oriented ...Motor Strength: WNL, LUE, LLE, RUE, RLE Labs: Labs: CBC, BMP 09/27/18 12:47 09/27/18 12:47 Discharge Summary Reason For Visit: GALLSTONE PANCREATITIS Hospital Course: 43 yrs old man with H/O HTN, morbid obesity s/p Gsatric sleeve surgery at [place] 2 yrs ago present with sever epigastric typical presentation, with elevated TB , Alk Phosphate and SGOT/SGPT, Lipase > 18 K with moderte amount of horacio-pancreatic fluid, Gall bladder distention with multiple Gall stones CBD 0.5 cm, no CT evidence of pancreatic necrosis, IV Hydration Normal saline 150 cc /HR, NPO, Pain control, IV PPI, MRCP< surgery consult, serial labs and Lapse will F/U CRP level, rest management as per surgery recommendation.Gi and surgery input appreciated considering elevated TB ossibality of of obstructed stone at present ERCP is not available , GI recommended transfer to a Ctr with ERCP facility, so discussed with surgery consult and ED attending, as patient previously oprated at [facility] ED spoke to his operating surgeon Dr Deuce Denise and patient is transferred to [facility].. Condition: Guarded - Instructions Referrals: Dariel Breen MD [Primary Care Provider] - Disposition: TRANSFER ACUTE CARE/OTHER HOSP - Home Medications Comprehensive Discharge Medication List: Ambulatory Orders Amlodipine Besylate [Norvasc -] 10 mg PO HS 08/31/14
== END 2018-09-27 22:00 | disposition short-term general hospital (02) | DRG 282 ==
LOC: JER 11:04 → JERBED 17:32
PROVIDERS: ADMIT Internal Medicine; ATTEND Internal Medicine
DX: K85.10 Biliary acute pancreatitis without necrosis or infection (principal); I10 Essential (primary) hypertension; K57.90 Diverticulosis of intestine, part unspecified, without perforation or abscess without bleeding; E66.9 Obesity, unspecified; Z68.33 Body mass index [BMI] 33.0-33.9, adult; R11.2 Nausea with vomiting, unspecified; E86.0 Dehydration; K80.71 Calculus of gallbladder and bile duct without cholecystitis with obstruction; R10.13 Epigastric pain; Z98.84 Bariatric surgery status
CPT/HCPCS: 36415; 74177-TC; 76700-TC; 80053; 80061; 81003; 82550; 83690; 83721; 83735; 84484; 85025; 85610; 86140; 86850; 86900; 86901; 93005; 93010; 99284-25; J0131; J7030; Q9967

== ENCOUNTER 2019-06-19 16:29 | Emergency (ER) | payer OTHER ==
[2019-06-19 16:42] VITALS: BP 148/84; PULSE 70; TEMP 98.3; BMI 36.9
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
== END 2019-06-19 18:29 | disposition home or self-care (01) ==
LOC: JERFT 16:29
DX: S16.1XXA Strain of muscle, fascia and tendon at neck level, initial encounter (principal); S00.03XA Contusion of scalp, initial encounter; V43.52XA Car driver injured in collision with other type car in traffic accident, initial encounter; Y93.89 Activity, other specified; Y92.410 Unspecified street and highway as the place of occurrence of the external cause; I10 Essential (primary) hypertension; E78.00 Pure hypercholesterolemia, unspecified; Z88.0 Allergy status to penicillin
CPT/HCPCS: 70450-TC; 99281-25

== ENCOUNTER 2021-01-10 11:51 | Emergency (ER) | payer OTHER ==
[2021-01-10 12:13] VITALS: BP 158/94; PULSE 73; TEMP 98.6; BMI 33.0
== END 2021-01-10 13:29 | disposition home or self-care (01) ==
LOC: JER 11:51
DX: J06.9 Acute upper respiratory infection, unspecified (principal); R09.81 Nasal congestion; Z11.52 Encounter for screening for COVID-19
CPT/HCPCS: 71046-TC-FY; 99283-25; C9803; U0003

== ENCOUNTER 2022-02-09 18:59 | Emergency (ER) | payer OTHER ==
[2022-02-09 19:24] VITALS: BP 145/87; PULSE 56; TEMP 97.6; BMI 42.8
[2022-02-09] MEDS ORDERED: KETOROLAC TROMETHAMINE 30 MG/1 ML VIAL IM ONE (20:09)
[2022-02-09] MEDS ORDERED: KETOROLAC TROMETHAMINE 30 MG/1 ML VIAL ONE (20:26)
== END 2022-02-09 23:35 | disposition home or self-care (01) ==
LOC: JERFT 18:59 → JER 18:59 → JERFT 23:35
PROC: 3E023GC Introduction of Other Therapeutic Substance into Muscle, Percutaneous Approach (ICD-10-PCS; principal; 2022-02-09)
DX: S86.811A Strain of other muscle(s) and tendon(s) at lower leg level, right leg, initial encounter (principal); X50.9XXA Other and unspecified overexertion or strenuous movements or postures, initial encounter
CPT/HCPCS: 73562-TC-LT-FY; 73562-TC-RT-FY; 73590-TC-RT-FY; 99284-25

== ENCOUNTER 2022-08-22 20:37 | Emergency (ER) | payer OTHER ==
[2022-08-22 20:42] VITALS: BP 151/92; PULSE 75; RESP 20; TEMP 97.4; BMI 42.8
[2022-08-22] MEDS ORDERED: ACETAMINOPHEN 500 MG TABLET (FP) PO ONE (21:23)
[2022-08-22] MEDS ORDERED: ACETAMINOPHEN 500 MG TABLET (FP) ONE (21:26)
[2022-08-22 22:18] LABS: BASO % 0.7 % (0-2.0); EOS % 2.6 % (0-4.5); HEMATOCRIT 41.2 % (35.4-49); HEMOGLOBIN 13.9 GM/dL (11.7-16.9); LYMPH % 41.9 % (8-40); MCH 29.6 pg (25.7-33.7); MCHC 33.8 g/dl (32.0-35.9); MEAN CELL VOLUME 87.4 fl (80-96); MONO % 12.7 % (3.8-10.2); NEUT % 42.1 % (42.8-82.8); PLATELET COUNT 179 10^3/uL (134-434); RBC 4.72 M/mm3 (4.00-5.60); RDW 14.2 % (11.9-15.9); WHITE BLOOD COUNT 5.2 K/mm3 (4.0-10.0)
[2022-08-22 22:38] LABS: CALCIUM 8.8 mg/dL (8.5-10.1)
[2022-08-22 22:39] LABS: ALBUMIN 3.7 g/dl (3.4-5.0); BLOOD UREA NITROGEN 16.2 mg/dL (7-18)
[2022-08-22 22:43] LABS: BILIRUBIN,TOTAL 0.4 mg/dL (0.2-1); TOT PROT 7.2 g/dl (6.4-8.2)
== END 2022-08-23 01:13 | disposition home or self-care (01) ==
LOC: JERFT 20:37 → JER 20:37
DX: M25.512 Pain in left shoulder (principal); R68.84 Jaw pain
CPT/HCPCS: 36415; 71046-TC-FY; 73030-TC-LT-FY; 80053; 84484; 85025; 93005; 93010; 99284-25

== ENCOUNTER 2023-11-03 17:38 | Emergency (ER) | payer OTHER ==
[2023-11-03 17:54] VITALS: BP 137/86; PULSE 72; RESP 20; TEMP 97.7; BMI 47.5
[2023-11-03] MEDS ORDERED: ALBUTEROL SO4 2.5/IPRATROPIUM 0.5 INH SOL 3 ML VIAL.NEB. NEB ONE ×2 (20:57→21:03)
[2023-11-03] MEDS ORDERED: KETOROLAC TROMETHAMINE 30 MG/1 ML VIAL IM ONE (21:39)
[2023-11-03] MEDS ORDERED: KETOROLAC TROMETHAMINE 30 MG/1 ML VIAL ONE (21:45)
== END 2023-11-03 21:53 | disposition home or self-care (01) ==
LOC: JERFT 17:38
PROC: 3E0233Z Introduction of Anti-inflammatory into Muscle, Percutaneous Approach (ICD-10-PCS; principal; 2023-11-03)
PROC: 3E0F7GC Introduction of Other Therapeutic Substance into Respiratory Tract, Via Natural or Artificial Opening (ICD-10-PCS; 2023-11-03)
DX: R05.9 Cough, unspecified (principal); M54.50 Low back pain, unspecified; Z20.822 Contact with and (suspected) exposure to COVID-19
CPT/HCPCS: 0241U-QW; 99284-25

== ENCOUNTER 2024-04-02 19:12 | Emergency (ER) | payer OTHER ==
[2024-04-02 19:35] VITALS: BP 146/82; PULSE 70; RESP 18; TEMP 98.3; BMI 33.6
[2024-04-02] MEDS ORDERED: KETOROLAC TROMETHAMINE 30 MG/1 ML VIAL ONE (20:33)
[2024-04-02] MEDS ORDERED: ACETAMINOPHEN 500 MG TABLET (FP) ONE (20:33)
[2024-04-02] MEDS ORDERED: LIDOCAINE 4% PATCH TP ONE (20:33)
[2024-04-02] MEDS: LIDOCAINE 4% PATCH TP ONE (20:41)
[2024-04-02] MEDS: KETOROLAC TROMETHAMINE 30 MG/1 ML VIAL IM ONE (20:41)
[2024-04-02] MEDS: ACETAMINOPHEN 500 MG TABLET (FP) PO ONE (20:42)
[2024-04-03] MEDS ORDERED: LIDOCAINE PATCH REMOVAL MC SCH (08:00)
== END 2024-04-02 20:44 | disposition home or self-care (01) ==
LOC: JER 19:12 → JERFT 19:12
PROC: 3E0233Z Introduction of Anti-inflammatory into Muscle, Percutaneous Approach (ICD-10-PCS; principal; 2024-04-02)
DX: S06.0X0A Concussion without loss of consciousness, initial encounter (principal); M54.50 Low back pain, unspecified; M54.2 Cervicalgia; V03.10XA Pedestrian on foot injured in collision with car, pick-up truck or van in traffic accident, initial encounter; Y92.410 Unspecified street and highway as the place of occurrence of the external cause
CPT/HCPCS: 99284-25